=== PATIENT | male | born 1980 | race Caucasian/White ===

== ENCOUNTER 2018-01-10 09:32 | Emergency (ER) | payer BC, OTHER ==
[2018-01-10] MEDS ORDERED: MORPHINE 4 MG/ML SYR ONE (10:10)
[2018-01-10] MEDS ORDERED: NA CHLORIDE 0.9% 1,000 ML ONE (10:10)
[2018-01-10] MEDS ORDERED: ONDANSETRON 4 MG/2 ML VIAL ONE (10:10)
--- NOTE | 2018-01-10 10:43 | RAD REPORT ---
EXAM DESCRIPTION: CT - Stone Protocol - 01/10/2018 10:19 am CLINICAL HISTORY: Abdominal pain. Left upper quadrant pain COMPARISON: 2013 TECHNIQUE: Computed axial tomography of the abdomen pelvis was obtained without oral or IV contrast. Lack of IV and oral contrast limits evaluation of solid organs, bowel, and vessels. Coronal reformat cheko images were obtained and reviewed. All CT scans are performed using dose optimization technique as appropriate and may include automated exposure control or mA/KV adjustment according to patient size. FINDINGS: A renal calculus is not seen. Mild left hydronephrosis is present. 1.5 millimeter calculus is present within the distal left ureter. Fatty infiltration liver is present. Spleen, pancreas and adrenals appear grossly normal There is no evidence of diverticulitis. The appendix appears normal IMPRESSION: 1.5 millimeter distal left ureteral calculus resulting mild left hydronephrosis
--- NOTE | 2018-01-10 11:10 | EDPHYS ---
Physician Documentation [facility] Name: Ronnell Zamarripa Age: 37 yrs Sex: Male : 1980 Arrival Date: 01/10/2018 Time: 09:36 Bed 18 Private MD: Сергей Morgan H ED Physician Dandre Fuentes HPI: 01/10 10:35 This 37 yrs old Male presents to ER via Ambulatory with complaints of kdr Abdominal Pain. 10:35 The patient presents with abdominal pain in the left upper quadrant, Left flank. kdr 11:48 Onset: The symptoms/episode began/occurred suddenly, just prior to arrival, this kdr morning. The symptoms do not radiate. Associated signs and symptoms: Pertinent positives: nausea, Pertinent negatives: anorexia, blood in stools, chest pain, constipation, diarrhea, dysuria, palpitations, shortness of breath, testicular pain. The symptoms are described as achy, constant, steady. Modifying factors: The symptoms are alleviated by nothing, the symptoms are aggravated by breathing deeply, movement. Severity of pain: At its worst the pain was severe just prior to arrival, in the emergency department the pain has improved moderately. The patient has not experienced similar symptoms in the past. The patient has not recently seen a physician. Historical: - Allergies: 09:52 No Known Allergies; hb - Home Meds: 09:52 unknown ADD med [Active]; hb - PMHx: 09:52 ADD/ADHD; hb - PSHx: 09:52 None; hb - Immunization history:: Adult Immunizations up to date. - Social history:: Smoking status: Patient uses tobacco products, smokes one pack cigarettes per day. - Ebola Screening: : No symptoms or risks identified at this time. ROS: 11:48 Constitutional: Negative for fever, chills, and weight loss, Eyes: Negative for injury, kdr pain, redness, and discharge, Neck: Negative for injury, pain, and swelling, Cardiovascular: Negative for chest pain, palpitations, and edema, Respiratory: Negative for shortness of breath, cough, wheezing, and pleuritic chest pain, : Negative for injury, bleeding, discharge, and swelling, MS/Extremity: Negative for injury and deformity, Skin: Negative for injury, rash, and discoloration, Neuro: Negative for headache, weakness, numbness, tingling, and seizure activity. Psych: Negative for depression, anxiety, suicide ideation, homicidal ideation, and hallucinations, Allergy/Immunology: Negative for hives, rash, and allergies, Endocrine: Negative for neck swelling, polydipsia, polyuria, polyphagia, and marked weight changes, Hematologic/Lymphatic: Negative for swollen nodes, abnormal bleeding, and unusual bruising. 11:48 Abdomen/GI: Positive for nausea. 11:48 Abdomen/GI: Positive for of the anterior aspect of left lateral abdomen and left upper quadrant. 11:48 Back: Negative for injury or acute deformity, decreased range of motion, pain at rest, pain with movement, radiated pain. Exam: 11:48 Constitutional: This is a well developed, well nourished patient who is awake, alert, kdr and in no acute distress. Head/Face: Normocephalic, atraumatic. Eyes: Pupils equal round and reactive to light, extra-ocular motions intact. Lids and lashes normal. Conjunctiva and sclera are non-icteric and not injected. Cornea within normal limits. Periorbital areas with no swelling, redness, or edema. Neck: Trachea midline, no thyromegaly or masses palpated, and no cervical lymphadenopathy. Supple, full range of motion without nuchal rigidity, or vertebral point tenderness. No Meningismus. Chest/axilla: Normal chest wall appearance and motion. Nontender with no deformity. No lesions are appreciated. Cardiovascular: Regular rate and rhythm with a normal S1 and S2. No gallops, murmurs, or rubs. Normal PMI, no JVD. No pulse deficits. Respiratory: Lungs have equal breath sounds bilaterally, clear to auscultation and percussion. No rales, rhonchi or wheezes noted. No increased work of breathing, no retractions or nasal flaring. Abdomen/GI: Soft, non-tender, with normal bowel sounds. No distension or tympany. No guarding or rebound. No evidence of tenderness throughout. Back: No spinal tenderness. No costovertebral tenderness. Full range of motion. Skin: Warm, dry with normal turgor. Normal color with no rashes, no lesions, and no evidence of cellulitis. MS/ Extremity: Pulses equal, no cyanosis. Neurovascular intact. Full, normal range of motion. Neuro: Awake and alert, GCS 15, oriented to person, place, time, and situation. Cranial nerves II-XII grossly intact. Motor strength 5/5 in all extremities. Sensory grossly intact. Cerebellar exam normal. Normal gait. Psych: Awake, alert, with orientation to person, place and time. Behavior, mood, and affect are within normal limits. Vital Signs: 09:51 BP 192 / 129; Pulse 88; Resp 16; Temp 98.9; Pulse Ox 100% on R/A; Pain 8/10; hb 10:33 BP 141 / 94; Pulse 69; Resp 18; Pulse Ox 97% on R/A; Pain 0/10; em MDM: 11:09 Patient medically screened. kdr 11:48 Data reviewed: vital signs, nurses notes, lab test result(s), radiologic studies. kdr Counseling: I had a detailed discussion with the patient and/or guardian regarding: the historical points, exam findings, and any diagnostic results supporting the discharge/admit diagnosis, lab results, radiology results, the need for outpatient follow up. Special discussion: Based on the patient's Hx, exam, and Dx evaluation, there is no indication for emergent surgery or inpatient Tx. It is understood by the patient/guardian that if the Sx's persist or worsen they need to return immediately for re-evaluation. I discussed with the patient/guardian in detail that at this point there is no indication for admission to the hospital. It is understood, however, that if the symptoms persist or worsen the patient needs to return immediately for re-evaluation. 01/10 09:57 Order name: CT Stone Protocol; Complete Time: 11:05 kdr 01/10 11:12 Order name: Urine Dipstick--Ancillary (enter results) em1 01/10 11:06 Order name: Urine Dipstick-Ancillary (obtain specimen); Complete Time: 11:11 kdr Administered Medications: 11:29 Not Given (Patient Refused): NS 0.9% 1000 ml IV at 1 bolus Per protocol; 1000 mL bolus em 11:30 Not Given (Patient Refused): morphine 4 mg IVP once em 11:30 Not Given (Patient Refused): Zofran 4 mg IVP once; over 2 minutes em Disposition: 01/10/18 11:09 Discharged to Home. Impression: Unspecified renal colic, Hydronephrosis with ureteral stricture, not elsewhere classified. - Condition is Stable. - Discharge Instructions: Renal Colic, [id number]-lo-[id number], Kidney Stones, Gpvx-ch-Tnec. - Prescriptions for Tylenol- Codeine #3 300-30 mg Oral Tablet - take 2 tablets by ORAL route every 6 hours As needed Takne one or two tablets every four to six hours as needed for pain; 15 tablet. Zofran 4 mg Oral Tablet - take 1 tablet by ORAL route every 4-6 hours As needed; 12 tablet. Flomax 0.4 mg Oral Capsule, Sust. Release 24 hr - take 1 capsule by ORAL route once daily 1/2 hour following the same meal each day; 10 capsule. Bactrim DS 800- 160 mg Oral Tablet - take 1 tablet by ORAL route every 12 hours for 3 days; 6 tablet. - Medication Reconciliation Form, Thank You Letter, Antibiotic Education, Prescription Opioid Use form. - Follow up: Сергей Morgan DO; When: 2 - 3 days; Reason: If symptoms return, Further diagnostic work-up, Recheck today's complaints, Continuance of care, Re-evaluation by your physician. - Problem is new. - Symptoms have improved. Signatures: Dispatcher [employer] [facility] Dandre Fuentes MD MD kdr Yefri Mina, TRAFFIC ENUMERATOR TRAFFIC ENUMERATOR em Iwona Sullivan RN RN Corrections: (The following items were deleted from the chart) 11:17 11:06 CBC+H.LAB.BRZ ordered. [facility] 11:17 11:06 BASIC METABOLIC PANEL+C.LAB.BRZ ordered. [facility] 11:35 11:09 01/10/2018 11:09 Discharged to Home. Impression: Unspecified renal colic; em Hydronephrosis with ureteral stricture, not elsewhere classified. Condition is Stable. Forms are Medication Reconciliation Form, Thank You Letter, Antibiotic Education, Prescription Opioid Use. Follow up: Сергей Morgan; When: 2 - 3 days; Reason: If symptoms return, Further diagnostic work-up, Recheck today's complaints, Continuance of care, Re-evaluation by your physician. Problem is new. Symptoms have improved. kdr
--- NOTE | 2018-01-10 11:10 | ER ---
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 Transition hb of care: patient was not received from another setting of care. Onset of symptoms was January 10, 2018. Risk Assessment: Do you want to hurt yourself or someone else? Patient reports no desire to harm self or others. Care prior to arrival: None. 09:51 Method Of Arrival: Ambulatory hb 09:51 Acuity: ABDIAZIZ 2 hb 11:34 Initial Sepsis Screen: Does the patient meet any 2 criteria? No. Patient's initial em sepsis screen is negative. Does the patient have a suspected source of infection? Yes: Dysuria/Frequency/Urgency/UTI. Historical: - Allergies: 09:52 No Known Allergies; hb - Home Meds: 09:52 unknown ADD med [Active]; hb - PMHx: 09:52 ADD/ADHD; hb - PSHx: 09:52 None; hb - Immunization history:: Adult Immunizations up to date. - Social history:: Smoking status: Patient uses tobacco products, smokes one pack cigarettes per day. - Ebola Screening: : No symptoms or risks identified at this time. Screenin:52 Abuse screen: Denies threats or abuse. Denies injuries from another. Nutritional hb screening: No deficits noted. Tuberculosis screening: No symptoms or risk factors identified. Fall Risk None identified. Assessment: 10:12 General: Appears in no apparent distress. uncomfortable, Behavior is calm, cooperative. em General: Denies fever. Pain: Complains of pain in left upper quadrant Pain currently is 0 out of 10 on a pain scale. at worst was 10 out of 10 on a pain scale. Neuro: Level of Consciousness is awake, alert, obeys commands, Oriented to person, place, time, situation. Cardiovascular: Capillary refill < 3 seconds Patient's skin is warm and dry. Respiratory: Airway is patent Respiratory effort is even, unlabored, Respiratory pattern is regular, symmetrical. GI: Abdomen is round non-distended, Bowel sounds present X 4 quads. Abd is soft and non tender X 4 quads. Reports nausea, Patient currently denies vomiting. : Denies burning with urination, inability to void. EENT: No signs and/or symptoms were reported regarding the EENT system. Derm: Skin is intact, Skin is pink, warm \T\ dry. Musculoskeletal: Range of motion: intact in all extremities. 10:20 Reassessment: No changes from previously documented assessment. I agree with above la1 assessment. 10:34 Reassessment: pt currently in no pain, wants to hold off on medication, provider em notified. 11:20 Reassessment: Patient appears in no apparent distress at this time. Patient and/or em family updated on plan of care and expected duration. Pain level reassessed. Patient is alert, oriented x 3, equal unlabored respirations, skin warm/dry/pink. Patient denies pain at this time. Patient states feeling better. Vital Signs: 09:51 BP 192 / 129; Pulse 88; Resp 16; Temp 98.9; Pulse Ox 100% on R/A; Pain 8/10; hb 10:33 BP 141 / 94; Pulse 69; Resp 18; Pulse Ox 97% on R/A; Pain 0/10; em ED Course: 09:36 Patient arrived in ED. sb2 09:37 Сергей Morgan DO is Private Physician. sb2 09:38 Dandre Fuentes MD is Attending Physician. kdr 09:49 Yefri Mina LVN is Primary Nurse. em 09:52 Triage completed. hb 09:52 Arm band placed on. hb 10:10 Patient has correct armband on for positive identification. Bed in low position. Call em light in reach. Adult w/ patient. 10:16 CT completed. Patient tolerated procedure well. Patient moved back from CT. bq 10:19 CT Stone Protocol In Process Unspecified. EDMS 11:09 Сергей Morgan DO is Referral Physician. kdr 11:17 No provider procedures requiring assistance completed. Urine collected: clean catch em specimen, clear. Patient did not have IV access during this emergency room visit. Administered Medications: 11:29 Not Given (Patient Refused): NS 0.9% 1000 ml IV at 1 bolus Per protocol; 1000 mL bolus em 11:30 Not Given (Patient Refused): morphine 4 mg IVP once em 11:30 Not Given (Patient Refused): Zofran 4 mg IVP once; over 2 minutes em Outcome: 11:09 Discharge ordered by . kdr 11:35 Discharged to home ambulatory, with family. em 11:35 Condition: good 11:35 Discharge instructions given to patient, family, Instructed on discharge instructions, follow up and referral plans. medication usage, Demonstrated understanding of instructions, follow-up care, medications, Prescriptions given X 4. 11:35 Patient left the ED. em Signatures: Dispatcher [employer] EDMS Dandre Fuentes MD MD kdr Quilty, Betty bq Munoz, Edgar, STRAP CUTTER STRAP CUTTER em Maurice Mendoza RN RN Iwona Guerra RN RN Callie Keen2
[2018-01-10 11:41] LABS: Urine Blood 3+ (NEG); Urine Glucose NEGATIVE (NEG); Urine Protein NEGATIVE (NEG); Urine pH 5.5 (5.0-7.0)
== END 2018-01-10 11:35 | disposition home or self-care (01) ==
LOC: ER 09:32
DX: N13.1 Hydronephrosis with ureteral stricture, not elsewhere classified (principal); N23 Unspecified renal colic; F17.210 Nicotine dependence, cigarettes, uncomplicated; F90.9 Attention-deficit hyperactivity disorder, unspecified type
CPT/HCPCS: 74176; 76377; 81003; 99284; J2405; J7030

== ENCOUNTER 2018-10-08 23:56 | Observation (INO) | payer OTHER ==
[2018-10-09] MEDS ORDERED: NA CHLORIDE 0.9% 1,000 ML ONE (00:28)
[2018-10-09 00:51] LABS: Absolute Lymphocytes (CBC) 5.2 K/uL (0.7-4.9); Basophils % 1.1 % (0-1.3); Hematocrit 48.3 % (39.6-49.0); Lymphocytes % 41.8 % (15.3-44.8); MPV 9.9 fL (7.6-11.3); RBC Red Blood Cell Count 5.37 M/uL (4.33-5.43)
[2018-10-09 01:47] LABS: ALT/SGPT 103 U/L (12-78); AST/SGOT 68 U/L (15-37); Albumin 3.7 g/dL (3.4-5.0); Alkaline Phosphatase 96 U/L (45-117); BUN Blood Urea Nitrogen 15 mg/dL (7-18); Bicarbonate 28 mmol/L (21-32); Bilirubin Direct 0.1 mg/dL (0-0.2); Bilirubin Total 0.7 mg/dL (0.2-1.0); CKMB Creatine Kinase MB 2.5 ng/mL (0.3-3.6); Creatine Phosphokinase 859 U/L (39-308); Glucose Level 139 mg/dL (74-106); Lipase 131 U/L (73-393); Magnesium 2.1 mg/dL (1.8-2.4); NT PRO-BNP 11 pg/mL (<125); Potassium 3.2 mmol/L (3.5-5.1); Sodium Level 141 mmol/L (136-145); Troponin (Emerg Dept Use Only) < 0.02 ng/mL (0.0-0.045)
[2018-10-09 01:57] LABS: Protime INR 0.99
[2018-10-09 02:02] LABS: Urine Bacteria <20 /HPF (NONE SEEN); Urine Culture Reflex Order NOT NEEDED; Urine Mucus LIGHT /HPF (NONE SEEN); Urine RBC <5 /HPF (NONE SEEN)
[2018-10-09] MEDS ORDERED: POTASSIUM 25 MEQ EFFERV TAB ONE (02:18)
[2018-10-09 02:40] LABS: Urine Blood NEGATIVE (NEG); Urine Glucose NEGATIVE (NEG); Urine Protein NEGATIVE (NEG); Urine Specific Gravity >1.030 (1.005-1.030)
--- NOTE | 2018-10-09 03:08 | ER ---
Nurse's Notes [facility] Name: Ronnell Zamarripa Age: 37 yrs Sex: Male : 1980 Arrival Date: 10/08/2018 Time: 23:57 Bed 3 Private MD: Diagnosis: Heat exhaustion;elevated CPK Presentation: 10/09 00:16 Presenting complaint: Patient states: left arm pain that radiates to left shoulder and ak1 neck X3 days. pt c/o right flank pain, generalized weakness and dark urine started Friday and Friday. pt stated on the and has been intermediated since. pt works outside in "[employer]" pt stated he has increased water intake. Transition of care: patient was not received from another setting of care. Onset of symptoms is unknown. Risk Assessment: Do you want to hurt yourself or someone else? Patient reports no desire to harm self or others. Initial Sepsis Screen: Does the patient meet any 2 criteria? No. Patient's initial sepsis screen is negative. Does the patient have a suspected source of infection? No. Patient's initial sepsis screen is negative. Care prior to arrival: None. 00:16 Method Of Arrival: Ambulatory ak1 00:16 Acuity: ABDIAZIZ 3 ak1 Triage Assessment: 00:19 General: Appears in no apparent distress. Behavior is calm, cooperative. Pain: ak1 Complains of pain in left arm, left shoulder, left neck, right flank pain. EENT: No signs and/or symptoms were reported regarding the EENT system. Neuro: Level of Consciousness is awake, alert, obeys commands, Oriented to person, place, time, situation, Pocket Assembler are equal bilaterally Moves all extremities. Gait is steady, Speech is normal, Facial symmetry appears normal. Cardiovascular: Reports nausea, shortness of breath, left arm pain radiates to left shoulder. Capillary refill < 3 seconds Patient's skin is warm and dry. Respiratory: Airway is patent Respiratory effort is even, unlabored, Respiratory pattern is regular, symmetrical, Breath sounds are clear bilaterally. GI: Abdomen is round non-distended, Bowel sounds present X 4 quads. Abd is soft and non tender X 4 quads. Reports nausea. : Reports pain in right flank(s), dark urine. Derm: Skin is intact, Skin is dry, Skin is pink, warm \\T\\ dry. Skin temperature is warm. Musculoskeletal: No signs and/or symptoms reported regarding the musculoskeletal system. Historical: - Allergies: 00:19 No Known Allergies; ak1 - Home Meds: 00:19 mydayis [Active]; ak1 - PMHx: 00:19 ADD/ADHD; ak1 - PSHx: 00:19 None; ak1 - Immunization history:: Adult Immunizations unknown. - Social history:: Smoking status: Patient uses tobacco products, smokes one-half pack cigarettes per day. - Ebola Screening: : No symptoms or risks identified at this time. - Family history:: Mother has/had heart disease, Father has/had heart disease. - Hospitalizations: : No recent hospitalization is reported. Screenin:22 Abuse screen: Denies threats or abuse. Denies injuries from another. Nutritional ak1 screening: No deficits noted. Tuberculosis screening: No symptoms or risk factors identified. Fall Risk None identified. Assessment: 00:21 Reassessment: Patient appears in no apparent distress at this time. No changes from ak1 previously documented assessment. see triage assessment. 02:54 Reassessment: Patient appears in no apparent distress at this time. pt and family ak1 informed by ERP about admission and repeat labs. 04:09 General: Appears in no apparent distress. Behavior is calm, cooperative. Neuro: No ak1 deficits noted. Cardiovascular: No deficits noted. Respiratory: No deficits noted. GI: No signs and/or symptoms were reported involving the gastrointestinal system. : No signs and/or symptoms were reported regarding the genitourinary system. EENT: No signs and/or symptoms were reported regarding the EENT system. Derm: No signs and/or symptoms reported regarding the dermatologic system. Musculoskeletal: No signs and/or symptoms reported regarding the musculoskeletal system. Vital Signs: 00:16 BP 173 / 113; Pulse 98; Resp 16; Temp 97.6(O); Pulse Ox 98% on R/A; Weight 117.93 kg ak1 (R); Height 6 ft. 0 in. (182.88 cm); Pain 6/10; 01:48 BP 149 / 93; Pulse 78; Resp 21; Pulse Ox 98% on R/A; ak1 02:15 BP 142 / 87; Pulse 82; Resp 18; Pulse Ox 98% on R/A; ak1 04:08 BP 151 / 92; Pulse 77; Resp 18; Pulse Ox 98% on R/A; ak1 00:16 Body Mass Index 35.26 (117.93 kg, 182.88 cm) ak1 ED Course: 10/08 23:57 Patient arrived in ED. ds1 08 00:07 Candice Posadas, RN is Primary Nurse. ak1 00:11 Vega Arroyo MD is Attending Physician. wa 00:16 Arm band placed on Patient placed in an exam room, on a stretcher, on pulse oximetry, ak1 Patient notified of wait time. EKG completed in triage. Results shown to MD. 00:18 Triage completed. ak1 00:22 Patient has correct armband on for positive identification. Bed in low position. Call ak1 light in reach. Side rails up X 1. Adult w/ patient. maintenance manager on. Pulse ox on. NIBP on. 00:29 Initial lab(s) drawn, by ED staff, sent to lab. EKG done, by ED staff, reviewed by ak1 Vega Arroyo MD. Inserted saline lock: 20 gauge in left hand, using aseptic technique. ,using aseptic technique. placed by Mckenna Arana RN Blood collected. 00:46 Patient moved to radiology via wheelchair. kw 00:47 X-ray completed. Patient tolerated procedure well. kw 00:48 XRAY Chest Pa And Lat (2 Views) In Process Unspecified. EDMS 02:54 No provider procedures requiring assistance completed. ak1 03:07 Ciro Elkins MD is Hospitalizing Provider. wa 04:06 Patient admitted, IV remains in place. ak1 Administered Medications: 00:31 Drug: NS 0.9% 1000 ml Route: IV; Rate: 1 bolus; Site: left hand; jd3 01:48 Follow up: IV Status: Completed infusion; IV Intake: 1000ml ak1 02:25 Drug: Potassium Effervescent Tablet 50 mEq Route: PO; ak1 02:25 Follow up: Response: No adverse reaction ak1 Intake: 01:48 IV: 1000ml; Total: 1000ml. ak1 Outcome: 03:07 Decision to Hospitalize by Provider. wa 04:02 Admitted to Tele accompanied by tech, family with patient, via wheelchair, room 221, ak1 with chart, Report called to Sharri DUMONT 04:02 Condition: stable 04:02 Instructed on the need for admit. 04:15 Patient left the ED. ak1 Signatures: Dispatcher [employer] EDOK Jennifer Banerjee ds1 Jen Terrazas Amber, RN RN ak1 Vega Arroyo MD MD wa Davies, Jonathon, RN RN jd3
--- NOTE | 2018-10-09 03:09 | EDPHYS ---
Physician Documentation [facility] Name: Ronnell Zamarripa Age: 37 yrs Sex: Male : 1980 Arrival Date: 10/08/2018 Time: 23:57 Bed 3 Private MD: ED Physician Vega Arroyo HPI: 10/09 02:56 This 37 yrs old Male presents to ER via Ambulatory with complaints of Heat wa Exposure. 02:56 The patient's problem is reported as altered mental status, confused, paresthesias, all wa over, weakness, that is generalized. Onset: The symptoms/episode began/occurred today. Duration: The episodes are intermittent. Context: the episode(s) was witnessed, by co-worker(s), occurred at work, occurred while the patient was walking, Possible contributing factors include: heat exhaustion. states SOB at work with heat exhaustion. was confused at work. has happened a couple times at work this week in the extreme heat. The symptoms are alleviated by nothing. The symptoms are aggravated by being out in the son. Associated signs and symptoms: Pertinent positives: confusion, diaphoresis, dizziness, lightheadedness, tingling, weakness. Severity of symptoms: At their worst the symptoms were moderate in the emergency department the symptoms have improved. Patient's baseline: Neuro: alert and fully oriented, Motor: no deficits, Ambulation: walks without assistance, Speech: normal. The patient has not experienced similar symptoms in the past. The patient has not recently seen a physician. 03:03 advised to come to ED when noted discolored urine. wa Historical: - Allergies: 00:19 No Known Allergies; ak1 - Home Meds: 00:19 mydayis [Active]; ak1 - PMHx: 00:19 ADD/ADHD; ak1 - PSHx: 00:19 None; ak1 - Immunization history:: Adult Immunizations unknown. - Social history:: Smoking status: Patient uses tobacco products, smokes one-half pack cigarettes per day. - Ebola Screening: : No symptoms or risks identified at this time. - Family history:: Mother has/had heart disease, Father has/had heart disease. - Hospitalizations: : No recent hospitalization is reported. ROS: 03:00 Constitutional: Negative for fever, chills, and weight loss, Eyes: Negative for injury, wa pain, redness, and discharge, ENT: Negative for injury, pain, and discharge, Neck: Negative for injury, pain, and swelling, Abdomen/GI: Negative for abdominal pain, nausea, vomiting, diarrhea, and constipation, Back: Negative for injury and pain, : Negative for injury, bleeding, discharge, and swelling, MS/Extremity: Negative for injury and deformity, Skin: Negative for injury, rash, and discoloration, Neuro: Negative for headache, weakness, numbness, tingling, and seizure, Psych: Negative for depression, anxiety, suicide ideation, homicidal ideation, and hallucinations. 03:00 Cardiovascular: Positive for chest pain, Negative for edema, orthopnea, palpitations, paroxysmal nocturnal dyspnea. 03:00 Respiratory: Positive for shortness of breath, on exertion. Negative for cough. 03:00 Abdomen/GI: Positive for nausea. 03:00 All other systems are negative. Exam: 03:01 CT study not indicated or reported. Reason for not performing CT: no focal neuro wa symptoms at this time. symptoms consistent with heat exhaustion 03:01 Constitutional: This is a well developed, well nourished patient who is awake, alert, and in no acute distress. Head/Face: Normocephalic, atraumatic. Eyes: Pupils equal round and reactive to light, extra-ocular motions intact. Lids and lashes normal. Conjunctiva and sclera are non-icteric and not injected. Cornea within normal limits. Periorbital areas with no swelling, redness, or edema. ENT: Nares patent. No nasal discharge, no septal abnormalities noted. Tympanic membranes are normal and external auditory canals are clear. Oropharynx with no redness, swelling, or masses, exudates, or evidence of obstruction, uvula midline. Mucous membranes moist. Neck: Trachea midline, no thyromegaly or masses palpated, and no cervical lymphadenopathy. Supple, full range of motion without nuchal rigidity, or vertebral point tenderness. No Meningismus. Chest/axilla: Normal chest wall appearance and motion. Nontender with no deformity. No lesions are appreciated. Abdomen/GI: Soft, non-tender, with normal bowel sounds. No distension or tympany. No guarding or rebound. No evidence of tenderness throughout. Back: No spinal tenderness. No costovertebral tenderness. Full range of motion. Skin: Warm, dry with normal turgor. Normal color with no rashes, no lesions, and no evidence of cellulitis. MS/ Extremity: Pulses equal, no cyanosis. Neurovascular intact. Full, normal range of motion. Psych: Awake, alert, with orientation to person, place and time. Behavior, mood, and affect are within normal limits. 03:01 Cardiovascular: Rate: normal, Rhythm: regular, Pulses: no pulse deficits are appreciated, Heart sounds: normal, Edema: is not appreciated, JVD: is not appreciated. 03:01 ECG was reviewed by the Attending Physician. 03:01 Respiratory: the patient does not display signs of respiratory distress, Respirations: normal, Breath sounds: are clear throughout, Respiratory rate: nml 03:08 Neuro: Orientation: is normal, Mentation: is normal, Memory: is normal, Cranial nerves: wa grossly normal, Motor: is normal, Sensation: is normal, Gait: is steady. Vital Signs: 00:16 BP 173 / 113; Pulse 98; Resp 16; Temp 97.6(O); Pulse Ox 98% on R/A; Weight 117.93 kg ak1 (R); Height 6 ft. 0 in. (182.88 cm); Pain 6/10; 01:48 BP 149 / 93; Pulse 78; Resp 21; Pulse Ox 98% on R/A; ak1 02:15 BP 142 / 87; Pulse 82; Resp 18; Pulse Ox 98% on R/A; ak1 04:08 BP 151 / 92; Pulse 77; Resp 18; Pulse Ox 98% on R/A; ak1 00:16 Body Mass Index 35.26 (117.93 kg, 182.88 cm) ak1 MDM: 00:11 Patient medically screened. pa 03:03 Differential diagnosis: heat exhaustion/stroke. r/o ACS. pt with strong family history. pa Data reviewed: vital signs, nurses notes. 03:04 Test interpretation: by ED physician or midlevel provider: leukocytosis. elevated CPK. wa elevated liver enzymes. elevated K at 3.2. 03:05 Test interpretation: by ED physician or midlevel provider: EKG: HR 101. sinus tach. nml wa axis. no obvious ischemia. Response to treatment: the patient's symptoms have markedly improved after treatment. Physician consultation: Tucker Elkins MD. Admission orders: after a detailed discussion of the patient's condition and case, the admit orders are written by me. ED course: improved. will admit for further hydration. repeat CK in the AM. . 10/09 00:26 Order name: D-Dimer; Complete Time: 02:04 pa 10/09 00:26 Order name: BMP; Complete Time: 02:03 pa 10/09 00:26 Order name: CBC with Diff; Complete Time: 02:04 pa 10/09 00:26 Order name: Ckmb; Complete Time: 02:04 pa 10/09 00:26 Order name: CPK; Complete Time: 02:04 pa 10/09 00:26 Order name: Hepatic Function; Complete Time: 02:04 pa 10/09 00:26 Order name: Lipase; Complete Time: 02:04 pa 10/09 00:26 Order name: Magnesium; Complete Time: 02:04 pa 10/09 00:26 Order name: NT PRO-BNP; Complete Time: 02:04 pa 10/09 00:26 Order name: PT-INR; Complete Time: 02:05 pa 10/09 00:26 Order name: Troponin (emerg Dept Use Only); Complete Time: 02:05 pa 10/09 00:26 Order name: Urine Microscopic Only; Complete Time: 02:03 pa 10/09 01:37 Order name: Urine Dipstick--Ancillary (enter results) 10/09 04:06 Order name: Basic Metabolic Panel EDRI 10/09 00:26 Order name: XRAY Chest Pa And Lat (2 Views) pa 10/09 00:26 Order name: EKG; Complete Time: 00:28 pa 10/09 00:26 Order name: Cardiac monitoring; Complete Time: 00:27 pa 10/09 00:26 Order name: EKG - Nurse/Tech; Complete Time: 00:27 pa 10/09 00:26 Order name: IV Saline Lock; Complete Time: 00:27 pa 10/09 00:26 Order name: Labs collected and sent; Complete Time: 00:32 pa 10/09 00:26 Order name: O2 Per Protocol; Complete Time: 00:27 pa 10/09 00:26 Order name: O2 Sat Monitoring; Complete Time: 00:27 pa 10/09 00:26 Order name: Urine Dipstick-Ancillary (obtain specimen); Complete Time: 01:49 pa 10/09 04:06 Order name: Regular EDMS 10/09 04:06 Order name: Basic Metabolic Panel EDMS 10/09 04:06 Order name: CBC with Automated Diff EDMS 10/09 04:06 Order name: CBC with Automated Diff EDMS 10/09 04:06 Order name: Creatine Phosphokinase EDMS Administered Medications: 00:31 Drug: NS 0.9% 1000 ml Route: IV; Rate: 1 bolus; Site: left hand; jd3 01:48 Follow up: IV Status: Completed infusion; IV Intake: 1000ml ak1 02:25 Drug: Potassium Effervescent Tablet 50 mEq Route: PO; ak1 02:25 Follow up: Response: No adverse reaction ak1 Disposition: 10/09/18 03:07 Hospitalization ordered by Ciro Elkins for Observation. Preliminary diagnosis are Heat exhaustion, elevated CPK. - Bed requested for Telemetry/MedSurg (observation). - Status is Observation. ak1 - Condition is Stable. - Problem is new. - Symptoms have improved. UTI on Admission? No Signatures: [facility] [place] RN mw Krenek, Amber, RN RN ak1 Vega Arroyo MD MD wa Davies, Jonathon, RN RN jd3 Corrections: (The following items were deleted from the chart) 03:53 03:07 Hospitalization Ordered by Ciro Elkins MD for Observation. Preliminary diagnosis mw is Heat exhaustion; elevated CPK. Bed requested for Telemetry/MedSurg (observation). Status is Observation. Condition is Stable. Problem is new. Symptoms have improved. UTI on Admission? No. pa 04:15 03:53 10/09/2018 03:07 Hospitalization Ordered by Ciro Elkins MD for Observation. ak1 Preliminary diagnosis is Heat exhaustion; elevated CPK. Bed requested for Telemetry/MedSurg (observation). Status is Observation. Condition is Stable. Problem is new. Symptoms have improved. UTI on Admission? No. mw
[2018-10-09] MEDS ORDERED: ONDANSETRON 4 MG/2 ML VIAL IV PRN (04:02)
[2018-10-09] MEDS ORDERED: D5.45NS W/KCL 20MEQ 1,000 ML IV SCH (05:00)
[2018-10-09 07:54] LABS: BUN Blood Urea Nitrogen 14 mg/dL (7-18); Bicarbonate 31 mmol/L (21-32); Creatine Phosphokinase 789 U/L (39-308); Glucose Level 160 mg/dL (74-106); Potassium 3.2 mmol/L (3.5-5.1); Sodium Level 141 mmol/L (136-145)
--- NOTE | 2018-10-09 08:43 | RAD REPORT ---
EXAM DESCRIPTION: Carolyn Lilly (2 Views)10/09/2018 12:49 am CLINICAL HISTORY: Cough COMPARISON: 2013 FINDINGS: The lungs appear clear of acute infiltrate. The heart is normal size IMPRESSION: No acute abnormalities displayed
[2018-10-09] MEDS ORDERED: NA CHLORIDE 0.9% 1,000 ML IV SCH (10:00)
--- NOTE | 2018-10-09 10:26 | RAD REPORT ---
EXAM DESCRIPTION: CT - Head Brain Wo Cont - 10/09/2018 10:14 am CLINICAL HISTORY: Heat stroke, dizziness, weakness COMPARISON: None. TECHNIQUE: Axial 5 mm thick images of the head were obtained without IV contrast. All CT scans are performed using dose optimization technique as appropriate and may include automated exposure control or mA/KV adjustment according to patient size. FINDINGS: No intracranial hemorrhage, mass, edema or shift of mid-line structures. No acute infarcti on changes seen. No abnormal extra-axial fluid collections. Ventricles are normal. Mastoid air cells and visualized portions of the paranasal sinuses are clear. No acute bony findings. IMPRESSION: Negative non-contrast CT head examination.
--- NOTE | 2018-10-09 12:34 | EKG ---
Test Date: 2018-10-09 Test Time: 00:18:54 Weather Clerk: LASHAUN MEASUREMENT RESULTS: Intervals: Rate: 101 NJ: 150 QRSD: 86 QT: 354 QTc: 459 [place]: P: 70 NJ: 150 QRS: 62 T: 68 INTERPRETIVE STATEMENTS: Sinus tachycardia Otherwise normal ECG No previous ECG available for comparison Electronically Signed On 10-09-18 12:32:44 CDT by Osmar William
[2018-10-09] MEDS ORDERED: POTASSIUM CL SA 10 MEQ TAB PO ONE (14:55)
[2018-10-09 15:28] LABS: ALT/SGPT 94 U/L (12-78); AST/SGOT 57 U/L (15-37); Albumin 3.4 g/dL (3.4-5.0); Alkaline Phosphatase 102 U/L (45-117); BUN Blood Urea Nitrogen 12 mg/dL (7-18); Bicarbonate 28 mmol/L (21-32); Bilirubin Total 0.6 mg/dL (0.2-1.0); Creatine Phosphokinase 622 U/L (39-308); Glucose Level 126 mg/dL (74-106); Magnesium 2.1 mg/dL (1.8-2.4); Potassium 3.8 mmol/L (3.5-5.1); Protein, Total 6.5 g/dL (6.4-8.2); Sodium Level 140 mmol/L (136-145)
[2018-10-09] MEDS ORDERED: ENOXAPARIN 40 MG/0.4 ML SQ SCH (17:00)
--- NOTE | 2018-10-09 22:28 | HP ---
Date of Admission: 10/09/2018 Chief Complaint: Confusion, muscle pain, tingling, numbness. 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 Patient says that recently his employer started to require for him to wea r a certain body suit at work. The patient says that as soon as he wears this and starts working out side, within very short time he starts to sweat profusely and during his 8-hour shift, he may keep th is on for a few hours. Patient has been trying to keep himself very well hydrated as he understands the importance of hydration during this hot weather with his excessive amount of sweating. Patient r eports that about 2 weeks ago while he was at work, working outside in this hot weather, he started t o have feeling of dry mouth, extreme fatigue, and he stopped sweating. He was having shortness of br eath, felt like heart pounding, some confusion. He also was having muscle cramps, muscle pain, felt like lack of coordination and some agitation. Once again, he tried to keep on hydrating himself very well, and after he came home, he continued to hydrate himself and his symptoms got better and he did not have any problems up until 2 days ago, which is Friday of this week. He had recurrence of all those symptoms and also felt like this time he had worsening of symptoms including his eyesight was b lurry, had numbness of his left arm and left leg, some nausea feeling. On Friday, his symptoms we re present, but to a lesser extent. Yesterday, he noted that his urine was very dark. When his found out about all this yesterday, she asked him to collect the urine specimen in a cup, and after she looked at it, she was concerned about it and she advised him to come to emergency room. After joel alcantar was evaluated in ER, he was admitted to hospital. Patient received IV fluid in the emergency r oom and started feeling much better. This morning when I saw him, patient reports that he feels much better. All of his symptoms are almost gone, except only complaints he has now is still feeling wea k, tired, and some muscle pain in different areas of his body. When I was talking to him, I noted th at he was talking slowly instead of fluent speech. His speech was slow. There was no slurred speech , no trouble expressing, but just instead of fluent speech, he was speaking just a little bit slowly. also noted that when I pointed it out. Denies any headache this morning. 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 So, patient re ally did not know what to do until yesterday when advised him to come to ER. Patient says that as usual he kept on trying to keep himself well hydrated. No vomiting. No diarrhea. Review of Systems: SKILL LABOR: As mentioned above. Constitutional: As mentioned above. GI: As mentioned above. Eyes: As mentioned above. All other systems reviewed and negative. Allergies: NO KNOWN ALLERGIES. Past Medical History: Significant for fatty liver disease, attention-deficit disorder. Past Surgical History: Negative. Family History: Significant for stroke, coronary artery disease, myocardial infarction. Social History: Presence of smoking. Use of alcohol negative. Medications: He takes Mydayis 1 capsule by mouth every day in the morning for his attention-deficit disorder. Physical Examination: Vital Signs: Height 6 feet. Weight 277 pounds. Temperature , pulse , blood pre ssure , respiratory rate , oxygen saturation . General: Awake, alert, oriented, not in distress. HEENT: Head atraumatic, normocephalic. Conjunctivae nonerythematous. Sclerae white. Mouth, no thr ush or edema noted. Ears/nose, no mass, lesion, discharge noted. Neck: Supple. No JVD, lymph nodes, bruit, thyromegaly noted. Lungs: Bilateral good equal air entry. Clear to auscultation. No rhonchi. No rales. Heart: Normal heart sounds, no murmur or gallop. Abdomen: Soft, bowel sounds normal. No guarding, rigidity, tenderness, mass, hepatosplenomegaly, dis tention, or bruit noted. Extremities: No leg edema. No calf tenderness. Skin: No rash, ulcer, cellulitis. Lymphatics: No lymph node enlargement in neck, supraclavicular, infraclavicular region. Neuro: No focal neurological deficit. Chest: Unremarkable. External Genitalia: Deferred. Rectal: Deferred. Laboratory Data: White count 12.1, hemoglobin 16.4, platelets 269. INR 0.99. D-dimer less than 215 . Sodium 141, potassium 3.2, chloride 104, bicarb 28, BUN 15, creatinine 0.92, glucose 139, total bi lirubin 0.7, magnesium 2.1. SGOT 68, SGPT 103. Troponin less than 0.02. CPK 859. Lipase 131. Uri nalysis negative. Impression: 1.Heat stroke. 2.Fatty liver disease. 3.Attention-deficit disorder. 4.Hypokalemia. 5.Rule out diabetes. Plan: Admit patient to hospital for further evaluation and management of this problem. Patient is a ppropriate for inpatient and is expected to spend 2 midnight in the hospital. IV fluid, patient was getting D5 half NS with potassium in it and this morning's potassium is still low, we will him on pot assium replacement protocol. His blood glucose level has gone up this morning, so considering that w e will change his IV fluid to normal saline at 124 cc/hour. With the next blood draw, we will get he moglobin A1c. He also has mild rhabdomyolysis as noted with CPK elevation and his symptoms. This mo rning's CPK was slightly better than yesterday. We will continue to monitor his blood level for CPK and clinically. Continue regular diet. Patient did not get a CAT scan of head in the emergency room , which I have ordered. There was no focal neurological deficit when I examined him. I did risk reduction counselor him in presence of his that he probably should be able to go home sometime this weekend from the hospital once his condition is stable enough for discharge and there is a possibility that he might be able to return to work on Friday. Important instruction given to patient is that he needs to talk to his employer regarding heat exposure and appropriate precautions to be taken as I am concerned th at if he continues to work like the way he did, we will not be able to avoid recurrence of heat strok e and more complications as a result of such extreme heat exposure. Possibility of doing different t ype of work that does not expose him to excessive amount of heat is one consideration that we talked about. EDWIGE/MODL Voice ID: [id number]
== END 2018-10-09 17:35 | disposition home or self-care (01) ==
LOC: ER 23:56 → ERHOLD 10-09 04:09 → OBSVTOIN 10-09 04:09 → INTOOBSV 10-09 04:09 → 2ND 10-09 04:10 → OBSVTOIN 10-09 09:33 → INTOOBSV 10-09 09:33
PROVIDERS: ADMIT Internal Medicine; ATTEND Family Medicine
DX: T67.0XXA Heatstroke and sunstroke, initial encounter (principal); X30.XXXA Exposure to excessive natural heat, initial encounter; Y93.01 Activity, walking, marching and hiking; Y99.0 Civilian activity done for income or pay; K76.0 Fatty (change of) liver, not elsewhere classified; F98.8 Other specified behavioral and emotional disorders with onset usually occurring in childhood and adolescence; E87.6 Hypokalemia; R00.0 Tachycardia, unspecified; F17.210 Nicotine dependence, cigarettes, uncomplicated; Z79.899 Other long term (current) drug therapy; Z82.49 Family history of ischemic heart disease and other diseases of the circulatory system
CPT/HCPCS: 93005; 85025; 80048 ×2; 36415; 83735 ×2; 82550 ×3; 85610; 85379; 80076; 83036; 84484 ×2; 82553; 83690; 80053; 83880; 70450; 71046; 96360; 99285; J7030 ×2; G0378 ×2; 81003; 81015